=== PATIENT | female | born 1965 | race Two or more races ===

== ENCOUNTER 2023-10-25 06:56 | Day surgery (SDC) | payer OTHER ==
[2023-10-17 09:51] LABS: HEMATOCRIT 38.7 % (36.0-45.00); HEMOGLOBIN 13.3 g/dL (12.0-15.00); MEAN CELL VOLUME 93.2 fL (80.00-100.00); MEAN CORPUSCULAR HGB CONC 34.3 g/dl (32.0-36.0); PLATELET COUNT 147 K/uL (150-450); RED BLOOD COUNT 4.15 M/uL (4.00-6.00); RED CELL DISTRIBUTION WIDTH 12.3 % (11.5-14.5)
[2023-10-17 09:58] LABS: PH,URINE 7.5 (5.0-8.0); URINE APPEARANCE Clear; URINE BILIRRUBIN Negative (NEGATIVE); URINE BLOOD Negative; URINE COLOR Yellow; URINE GLUCOSE Negative (NEGATIVE); URINE LEUKOCYTE Trace; URINE NITRATE Negative; URINE PROTEIN Negative (NEGATIVE)
[2023-10-17 10:02] LABS: URINE BACTERIA 733.2 uL (0.0-1933); URINE EPITHELIAL CELLS 35.7 uL (0.0-38.8); URINE WBC 8.8 uL (0.0-23.2)
[2023-10-17 10:32] LABS: INR 1.01; PARTIAL THROMBOPLASTIN TIME 26.1 SECONDS (22.0-34.0); PROTHROMBIN TIME 10.6 SECONDS (9.0-11.5)
[2023-10-17 10:38] LABS: ALBUMIN 4.3 gm/dL (3.4-5.0); BILIRUBIN TOTAL 0.43 mg/dL (0.3-1.2); CALCIUM 9.1 mg/dL (8.5-10.1); CREATININE SERUM 0.84 mg/dL (0.55-1.02); GFR 69.88; GLOBULINA 3.3 G/DL (2.4-3.5); POTASSIUM 3.84 mEq/L (3.5-5.1); TOTAL PROTEIN 7.6 gm/dL (6.4-8.2)
[~2023-10-25 06:56] MED LIST: INDERAL LA80 MG; SIMVASTATIN5 MG; WELLBUTRIN XL150 M1 PO; ZOLOFT100 MG PO
[2023-10-25] MEDS ORDERED: CEFAZOLIN SODIUM 1,000 MG VIAL IV ONE (09:15)
[2023-10-25] MEDS ORDERED: KETOROLAC TROMETHAMINE 30 MG VIAL IJ ONE (09:15)
[2023-10-25] MEDS ORDERED: BUPIVACAINE HCL/PF 0.5% 30ML ML IJ ONE (09:15)
[2023-10-25] MEDS ORDERED: LIDOCAINE HCL/EPINEPHRINE 20 ML VIAL IJ ONE ×2 (09:15→09:58)
[2023-10-25] MEDS ORDERED: KETOROLAC TROMETHAMINE 30 MG VIAL IV ONE (09:15)
[2023-10-25] MEDS ORDERED: CEFAZOLIN SODIUM 1,000 MG VIAL ONE (09:24)
[2023-10-25] MEDS ORDERED: KETOROLAC TROMETHAMINE 30 MG VIAL ONE (09:58)
[2023-10-25] MEDS ORDERED: BUPIVACAINE HCL/PF 0.5% 30ML ML ONE (09:58)
== END 2023-10-25 14:30 | disposition home or self-care (01) ==
LOC: CIR.AMB 06:56
PROVIDERS: ATTEND Orthopaedic Surgery
DX: M75.01 Adhesive capsulitis of right shoulder (principal); M75.121 Complete rotator cuff tear or rupture of right shoulder, not specified as traumatic; E78.5 Hyperlipidemia, unspecified; I10 Essential (primary) hypertension; Z20.822 Contact with and (suspected) exposure to COVID-19

== ENCOUNTER 2025-04-30 06:00 | Day surgery (SDC) | payer OTHER ==
[2025-04-22 08:51] VITALS: BP 130/85
[2025-04-22 09:36] LABS: INR 1.0
[~2025-04-30] VITALS: Ht 152.4 cm; Wt 52.2 kg
[~2025-04-30 06:00] MED LIST changes: +CLONAZEPAM0.5 M1 PO; -INDERAL LA80 MG; +INDERAL LA80 MG PO; +RESTORIL30 MG PO; -SIMVASTATIN5 MG; +SIMVASTATIN5 MG PO
[2025-04-30] MEDS ORDERED: BUPIVACAINE HCL 30 ML VIAL IJ ONE (09:30)
[2025-04-30] MEDS ORDERED: CEFAZOLIN SODIUM 1,000 MG VIAL IV ONE (09:45)
[2025-04-30] MEDS ORDERED: KETOROLAC TROMETHAMINE 30 MG VIAL IV ONE (09:45)
[2025-04-30] MEDS ORDERED: LIDOCAINE HCL 1%/EPINEPHRINE 20ML VIAL IJ ONE (09:45)
[2025-04-30] MEDS ORDERED: KETOROLAC TROMETHAMINE 30 MG VIAL IM ONE (09:45)
[2025-04-30] MEDS ORDERED: TRIAMCINOLONE ACETONIDE 40 MG/ML VIAL IM ONE (09:45)
[2025-04-30] MEDS ORDERED: MORPHINE SULFATE 4 MG/ML VIAL IV ONE (10:35)
== END 2025-04-30 12:10 | disposition home or self-care (01) ==
LOC: CIR.AMB 06:00
PROVIDERS: ATTEND Orthopaedic Surgery
DX: M75.42 Impingement syndrome of left shoulder (principal); M75.02 Adhesive capsulitis of left shoulder; M24.112 Other articular cartilage disorders, left shoulder